=== PATIENT | female | born 1990 | race Caucasian/White ===

== ENCOUNTER → 2019-03-25 | Outpatient (CLI) | payer OTHER, SELFPAY | PROVIDERS: Family Provider Family Medicine; Visit Provider Family Medicine | DX: G47.69 Other sleep related movement disorders (principal) | CPT/HCPCS: 95810 ==

== ENCOUNTER → 2019-06-12 10:21 | Outpatient (BNVA) | payer OTHER, SELFPAY | PROVIDERS: Family Provider Family Medicine; PCP Family Medicine; Visit Provider Emergency Medicine | DX: R50.9 Fever, unspecified (principal); R05 Cough; J06.9 Acute upper respiratory infection, unspecified | CPT/HCPCS: 87804 ==

== ENCOUNTER → 2019-06-20 10:31 | Outpatient (BNVA) | payer OTHER, SELFPAY | PROVIDERS: Family Provider Family Medicine; PCP Family Medicine; Visit Provider Nurse Practitioner Women's Health | DX: Z30.432 Encounter for removal of intrauterine contraceptive device (principal) | CPT/HCPCS: 76857 ==

== ENCOUNTER → 2019-06-25 11:49 | Outpatient (BNVA) | payer OTHER, SELFPAY | PROVIDERS: Family Provider Family Medicine; PCP Family Medicine; Visit Provider Emergency Medicine | DX: R50.9 Fever, unspecified (principal) | CPT/HCPCS: 87400 ==

== ENCOUNTER → 2019-09-10 10:50 | Outpatient (BNVA) | payer OTHER, SELFPAY | PROVIDERS: Family Provider Family Medicine; PCP Family Medicine; Visit Provider Family Medicine | DX: N92.6 Irregular menstruation, unspecified (principal) | CPT/HCPCS: 81025 ==

== ENCOUNTER 2019-09-16 20:57 | Emergency (ER) | payer OTHER, SELFPAY ==
[2019-09-16 21:02] VITALS: BP 107/71; PULSE 88; RESP 18; TEMP 36.3; O2SAT 100
[2019-09-16 21:34] LABS: Basophils % 0.2 %; Eosinophils # 0.1 10^3/uL (0.0-0.8); Hematocrit 41.3 % (37.0-47.0); Hemoglobin 13.4 g/dL (11.5-15.3); Lymphocytes % 29.8 %; Mean Corpuscular HGB Conc 32.4 g/dL (30.0-36.0); Mean Corpuscular Hemoglobin 28.9 pg (28.0-34.0); Mean Platelet Volume 10.6 fL (7.4-10.4); Monocytes # 0.5 10^3/uL (0.2-0.9); Monocytes % 4.6 %; Neutrophils # 6.5 10^3/uL (1.8-7.7); Neutrophils % 64.2 %; Nucleated Red Blood Cells % 0 %; Platelet Count 255 10^3/cmm (130-400); Red Blood Count 4.64 10^6/uL (4.1-5.3); Red Cell Distribution Width 12.7 % (12.1-15.1); White Blood Count 10.2 10^3/uL (4.0-10.0)
[2019-09-16 22:09] LABS: Alanine Aminotransferase 13 U/L (0-33); Albumin Level 4.7 g/dL (3.5-5.2); Alkaline Phosphatase 55 IU/L (35-105); Anion Gap 13.4 (5-19); Aspartate Amino Transferase 17 U/L (0-32); Blood Urea Nitrogen 11 mg/dL (6-20); Calcium 9.4 mg/dL (8.5-10.5); Carbon Dioxide 24 mmol/L (22-29); Chloride 102 mmol/L (98-107); Globulin 2.5 g/dL (1.3-4.6); Glucose 119 mg/dL (65-115); Osmolality Calculated 279 mOsm/kg (285-295); Potassium 3.4 mmol/L (3.5-5.1); Sodium 136 mmol/L (136-145); Total Bilirubin 0.3 mg/dL (0.15-1.2); Total Protein 7.2 g/dL (6.6-8.7)
--- NOTE | 2019-09-17 00:01 | USR_ITS ---
PROCEDURE INFORMATION: Exam: US First Trimester, Transabdominal and US , Transvaginal Exam date and time: 09/17/2019 12:33 AM Age: 29 years old Clinical indication: complicated by abdominal or pelvic pain; Lower; First trimester; Gestational age or lmp: 6w4d; ; Additional info: Bleeding TECHNIQUE: Imaging protocol: Real-time transabdominal obstetrical ultrasound of the maternal pelvis and a first trimester , less than 14 weeks 0 days, with image documentation. Transvaginal imaging was used for better evaluation of the fetus and adnexa. COMPARISON: No relevant prior studies available. FINDINGS: There is an intrauterine gestational sac, containing a probable yolk sac. Possibly a very small small pole is present, difficult to be completely certain. Mean gestational sac diameter of 18 mm, estimates gestational age of 6-1/2 to 7 weeks. Possible [place] rump length of 3-4 mm, would estimate gestational age of 5-1/2 to 6 weeks. No heart activity is definitely identified at this time. heart activity is often seen as early as 5-1/2 weeks, and is usually identified by gestational age of six weeks. However, definitive diagnosis of non-viability cannot be made on a single exam unless the crown-rump length is greater than 7 mm with absence of heart activity. Therefore, while this overall appearance could represent a missed AB/ demise, the findings are not definitive at this time. To be safe, follow-up ultrasound in several days could help confirm or exclude viability, as clinically directed. Possible small subchorionic hematoma, measuring 16 x 6 x 13 mm. Ovaries/adnexal regions appear essentially unremarkable. Blood flow detected in each ovary. No significant free pelvic fluid. The urinary bladder was not completely evaluated/imaged at this time. Endovaginal scanning provided better visualization/evaluation of the gestational sac and contents, as discussed above. US/US OB <=14 wk fetus w transvag IMPRESSION: 1. Early intrauterine , see detailed discussion above. 2. No definite heart activity, followup recommended as clinically directed. 3. Other details discussed above.
--- NOTE | 2019-09-17 00:18 | W.ED.FEMALGU ---
HPI - Female Genitourinary General: Chief complaint: Urogenital-Female Stated complaint: 13 weeks preg/bleeding Time Seen by Provider: 09/16/19 23:53 History of Present Illness: HPI Narrative: Patient had light bleeding today then passed a blood clot about 4:00 this afternoon said he bleeding since is possible 8 to 12 weeks MD elicited complaint: vaginal bleeding Onset (ago): hour(s) Severity scale (1-10): 3 Consistency: improved Vaginal discharge: none Associated symptoms: Reports no associated symptoms; Deny abdominal pain, headache(s) or nausea Patient : Yes Possible : other (Was seen by Dr. Montana just couple days ago) Date of Last Menstrual Period: 06/16/19 Review of Systems Const: Denies: fever(s), chills or body aches Eyes: Denies: change in vision or blurry vision ENMT: Denies: throat pain or nasal congestion Card: Denies: chest pain or dyspnea on exertion Resp: Denies: dyspnea, productive cough or non-productive cough GI: Denies: abdominal pain, nausea or vomiting : Reports: vaginal bleeding Musc: Denies: extremity pain Skin/Breast: Denies: rash Neuro: Denies: headache(s) Psych: Denies: anxiety or depression Aleksandr/Lymph: Denies: easy bruising PFSH ED PFSH: Medical History Contraceptive management Depression Hypersomnia Surgical History H/O breast augmentation (~08/2018) H/O tear of meniscus of knee joint (~11/2017) Family History Grandmother Cancer brain Grandfather Cancer lung ca Sister Cancer, Onset Age: 29 uterine Psychiatric illness bipolar d/o Father Psychiatric illness bipolar d/o Mother Psychiatric illness agoraphobia Social History Smoking and tobacco status: never smoked Alcohol intake: never Female Reproductive History: Date of last menstrual period: 06/16/19 Physical Exam Const: COMMON NORMALS: no acute distress, average body habitus and patient oriented x3 HENMT: COMMON NORMALS: normocephalic HEAD & SCALP: normal to inspection and normocephalic FACE & SINUS: normal facial exam Eye: COMMON NORMALS: conjunctivae normal GENERAL EYE: appearance normal, both eyes and all related structures CONJUNCTIVA: Yes conjunctivae normal Neck/C-Spine: COMMON NORMALS: no JVD Chest: COMMONS NORMALS: normal inspection of the chest Resp: COMMON NORMALS: normal respiratory effort and clear to auscultation bilaterally AUSCULTATION: clear to auscultation bilaterally Cardio: COMMON NORMALS: no JVD, regular rate and regular rhythm RATE: regular rate RHYTHM: regular rhythm GI: COMMON NORMALS: Normal to inspection, nondistended, normoactive bowel sounds present PALPATION: Yes Tenderness to palpation present (GI) Details: LLQ and RLQ Extremity: COMMON NORMALS: normal to inspection and full ROM Neuro: COMMON NORMALS: patient oriented x3 Course Vital Signs: Vital signs: Vital Signs Temperature 97.3 F L 09/16/19 21:02 Pulse Rate 88 09/16/19 21:02 Respiratory Rate 18 09/16/19 21:02 Blood Pressure 107/71 09/16/19 21:02 Pulse Oximetry 100 09/16/19 21:02 MDM - Female Lab Data: Labs: Lab Results 09/16/19 09/16/19 09/16/19 Range/Units 21:28 21:28 21:28 WBC 10.2 H (4.0-10.0) 10^3/ uL RBC 4.64 (4.1-5.3) 10^6/u L Hgb 13.4 (11.5-15.3) g/dL Hct 41.3 (37.0-47.0) % MCV 89.0 (81-99) fL MCH 28.9 (28.0-34.0) pg MCHC 32.4 (30.0-36.0) g/dL RDW 12.7 (12.1-15.1) % Plt Count 255 (130-400) 10^3/c mm MPV 10.6 H (7.4-10.4) fL Neut % (Auto) 64.2 % Lymph % (Auto) 29.8 % [place] % (Auto) 4.6 % Eos % (Auto) 1.0 % Baso % (Auto) 0.2 % Neut # (Auto) 6.5 (1.8-7.7) 10^3/u L Lymph # (Auto) 3.0 (0.8-4.8) 10^3/u L [place] # (Auto) 0.5 (0.2-0.9) 10^3/u L Eos # (Auto) 0.1 (0.0-0.8) 10^3/u L Baso # (Auto) 0.0 (0.0-0.1) 10^3/u L Nucleated RBC % (a uto) 0 % Nucleated RBCs # 0.0 /100WBC Sodium 136 (136-145) mmol/L Potassium 3.4 L (3.5-5.1) mmol/L Chloride 102 (98-107) mmol/L Carbon Dioxide 24 (22-29) mmol/L Anion Gap 13.4 (5-19) BUN 11 (6-20) mg/dL Creatinine 0.6 (0.5-0.9) mg/dL GFR Calculation 119.0 (90-130) mL/min Glucose 119 H (65-115) mg/dL Calculated Osmolal ity 279 L (285-295) mOsm/k g Calcium 9.4 (8.5-10.5) mg/dL Total Bilirubin 0.3 (0.15-1.2) mg/dL AST 17 (0-32) U/L ALT 13 (0-33) U/L Alkaline Phosphata se 55 (35-105) IU/L Total Protein 7.2 (6.6-8.7) g/dL Albumin 4.7 (3.5-5.2) g/dL Globulin 2.5 (1.3-4.6) g/dL Ser , Jaylin i-Qnt 5081.00 mIU/mL Blood Type O Negative Rho(D) Type Negative Discharge Plan Discharge Prescriptions: No Action multivitamin Tablet 1 tab PO DAILY RF: 0 Coding Level of Care Code ED Customer Service Advocate for Chg Reyna
[2019-09-17 01:53] VITALS: BP 90/51; PULSE 71; RESP 17; O2SAT 97
[2019-09-17 02:06] LABS: Add Urine Microscopic? YES; Bilirubin Urine Neg (NEGATIVE); Blood Urine 3+ (Negative); Glucose Urine UA Norm (Normal); Ketones Urine Negative (Negative); Leukocyte Esterase Urine Negative (Negative); Nitrate Urine Negative (Negative); Protein Urine Neg (Negative); Urine Appearance Clear (CLEAR); Urine Color Yellow (Yellow); Urobilinogen Urine Norm (Negative); pH Urine 6 (5-7)
[2019-09-17 02:07] LABS: Bacteria Urine 1+; Mucus Urine 2+; RBC Urine 0-4 /hpf (0-2); WBC Urine 0-4 /hpf (0-5)
[2019-09-17 02:26] VITALS: BP 87/47; PULSE 81; RESP 17; O2SAT 97
[2019-09-17 02:30] VITALS: BP 92/70
[2019-09-17 02:35] VITALS: BP 100/60; PULSE 68; RESP 20; O2SAT 100
[2019-09-17 03:06] VITALS: RESP 18
== END 2019-09-17 03:10 ==
PROVIDERS: Emergency Provider Nurse Practitioner Family; PCP Family Medicine
DX: O46.91 Antepartum hemorrhage, unspecified, first trimester (principal); Z3A.13 13 weeks gestation of pregnancy
CPT/HCPCS: 12345; 36415; 36430; 76801; 76817; 80053; 81001; 84702; 85025; 86850; 86900; 90384; 99282; 99283; A9270

== ENCOUNTER 2019-09-18 20:37 | Outpatient (CLI) | payer OTHER, SELFPAY | END 2019-09-18 20:38 | disposition home or self-care (01) | PROVIDERS: PCP Family Medicine; Visit Provider Nurse Practitioner Women's Health | DX: O20.0 Threatened abortion (principal) | CPT/HCPCS: 36415; 84702 ==

== ENCOUNTER 2019-09-20 10:15 | Emergency (ER) | payer OTHER, SELFPAY ==
[2019-09-20 10:17] VITALS: BP 107/64; PULSE 82; RESP 18; TEMP 37.1; O2SAT 99; BMI 25.2
[2019-09-20 10:31] VITALS: PULSE 80; RESP 17; O2SAT 97
--- NOTE | 2019-09-20 10:32 | USR_ITS ---
PROCEDURE INFORMATION: Exam: US First Trimester, Transabdominal and US , Transvaginal Exam date and time: 09/20/2019 11:16 AM Age: 29 years old Clinical indication: Lmp or gestational age (in weeks): 7 wks 0 days by prior US; Other: Bleeding; ; Additional info: Miscarriage TECHNIQUE: Imaging protocol: Real-time transabdominal obstetrical ultrasound of the maternal pelvis and a first trimester , less than 14 weeks 0 days, with image documentation. Transvaginal imaging was used for better evaluation of the fetus and adnexa. COMPARISON: US OB <=14 wk fetus w transvag 09/17/2019 12:45 AM FINDINGS: The uterus measures 9.2 x 5.1 x 5.7 cm. There is a single intrauterine gestational sac which is somewhat elongated in appearance. The mean sac diameter is 1.6 cm, corresponding to an estimated gestational age of 6 weeks, 5 days. The mean crown-rump length is 0.4 cm, corresponding to an estimated gestational age of 6 weeks, 0 days. Once again, no cardiac activity is appreciated. There is a 1.2 x 1.1 cm hypoechoic area adjacent to the gestational sac, similar to prior and suggestive of a small subchorionic hematoma. Both maternal ovaries are identified and demonstrate blood flow on Doppler interrogation. The right ovary measures 3 x 1.8 x 1.8 cm and the left ovary measures 2.7 x 2.1 x 1.5 cm. There is no adnexal mass. No free fluid is seen in the pelvis. US/US OB <=14 wk fetus w transvag IMPRESSION: Persistent absence of cardiac activity and small subchorionic hematoma. The ultrasound findings are concerning for although not diagnostic of failed 1st trimester . Continued correlation with serial quantitative beta-hCG levels and close interval ultrasound followup is suggested.
[2019-09-20 10:42] LABS: Basophils % 0.1 %; Eosinophils # 0.1 10^3/uL (0.0-0.8); Eosinophils % 0.7 %; Hematocrit 37.7 % (37.0-47.0); Hemoglobin 12.3 g/dL (11.5-15.3); Lymphocytes # 1.9 10^3/uL (0.8-4.8); Lymphocytes % 19.4 %; Mean Corpuscular HGB Conc 32.6 g/dL (30.0-36.0); Mean Corpuscular Volume 88.9 fL (81-99); Mean Platelet Volume 10.9 fL (7.4-10.4); Monocytes # 0.4 10^3/uL (0.2-0.9); Monocytes % 4.5 %; Neutrophils # 7.3 10^3/uL (1.8-7.7); Nucleated Red Blood Cells % 0 %; Platelet Count 243 10^3/cmm (130-400); Red Blood Count 4.24 10^6/uL (4.1-5.3); Red Cell Distribution Width 12.7 % (12.1-15.1); White Blood Count 9.7 10^3/uL (4.0-10.0)
[2019-09-20 10:47] VITALS: RESP 18
[2019-09-20] MEDS: ondansetron 2 mg/ML SDV 2 mL 4 MG IVP (10:47)
[2019-09-20] MEDS: morphine 4 mg/mL SDV 1 mL IVP (10:47)
[2019-09-20 10:50] LABS: INR 0.94 (0.8-1.2)
--- NOTE | 2019-09-20 10:55 | ED_ITS ---
HPI - General: Chief complaint: Vaginal Bleeding Stated complaint: BLEEDING/PAIN POST MISCARRIAGE Time Seen by Provider: 09/20/19 10:25 History of Present Illness: HPI Narrative: Patient arrives here with continued bleeding from her miscarriage said just felt weak and she did lose quite a minimal blood based on lab work that was done by the clinic. Is having cramping low back pain MD Complaint: vaginal bleeding Onset (ago): day(s) Pain Consistency: constant Location: abdomen Severity: moderate Severity scale (1-10): 6 Quality: Cramping and Aching Vaginal bleeding: heavy and other (Did have multiple clots yesterday) Date of Last Menstrual Period: 06/16/19 OB History - Current : other (Miscarriage) Associated symptoms: Deny abdominal pain, headache(s), nausea or vomiting Review of Systems Const: Denies: fever(s), chills or body aches Eyes: Denies: change in vision or blurry vision ENMT: Denies: throat pain or nasal congestion Card: Denies: chest pain or dyspnea on exertion Resp: Denies: dyspnea, productive cough or non-productive cough GI: Denies: abdominal pain, nausea or vomiting : Reports: vaginal bleeding and other (Back pain) Musc: Denies: extremity pain Skin/Breast: Denies: rash Neuro: Denies: headache(s) Psych: Denies: anxiety or depression Aleksandr/Lymph: Denies: easy bruising PFSH ED PFSH: Medical History (Updated 09/20/19 @ 12:48 by LUIS Scruggs) Contraceptive management Depression Hypersomnia Surgical History H/O breast augmentation (~08/2018) H/O tear of meniscus of knee joint (~11/2017) Family History Grandmother Cancer brain Grandfather Cancer lung ca Sister Cancer, Onset Age: 29 uterine Psychiatric illness bipolar d/o Father Psychiatric illness bipolar d/o Mother Psychiatric illness agoraphobia Social History Smoking and tobacco status: never smoked Alcohol intake: never Additional social history: - Tabacco use: Denies Alcohol use: Denies Drug use: Denies Female Reproductive History: Date of last menstrual period: 06/16/19 Physical Exam Const: COMMON NORMALS: no acute distress, average body habitus and patient oriented x3 HENMT: COMMON NORMALS: normocephalic HEAD & SCALP: normal to inspection and normocephalic FACE & SINUS: normal facial exam Eye: COMMON NORMALS: conjunctivae normal GENERAL EYE: appearance normal, both eyes and all related structures CONJUNCTIVA: Yes conjunctivae normal Neck/C-Spine: COMMON NORMALS: no JVD Chest: COMMONS NORMALS: normal inspection of the chest Resp: COMMON NORMALS: normal respiratory effort and clear to auscultation bilaterally AUSCULTATION: clear to auscultation bilaterally Cardio: COMMON NORMALS: no JVD, regular rate and regular rhythm RATE: regular rate RHYTHM: regular rhythm GI: COMMON NORMALS: Normal to inspection, nondistended, normoactive bowel sounds present Extremity: COMMON NORMALS: normal to inspection and full ROM Neuro: COMMON NORMALS: patient oriented x3 Course Vital Signs: Vital signs: Vital Signs Temperature 98.7 F 09/20/19 10:17 Pulse Rate 68 09/20/19 12:09 Respiratory Rate 16 09/20/19 12:09 Blood Pressure 90/54 09/20/19 12:09 Pulse Oximetry 95 09/20/19 12:09 MDM - OB/Uterine Contractions MDM Narrative: Medical decision making narrative: Discussed case with Dr. Pretty and Dr. Croft implementing discharge instructions per Dr. Croft patient will follow up on Sunday morning at his clinic Lab Data: Labs: Lab Results 09/20/19 09/20/19 09/20/19 Range/Units 10:28 10:28 10:28 WBC 9.7 (4.0-10.0) 10^3/ uL RBC 4.24 (4.1-5.3) 10^6/u L Hgb 12.3 (11.5-15.3) g/dL Hct 37.7 (37.0-47.0) % MCV 88.9 (81-99) fL MCH 29.0 (28.0-34.0) pg MCHC 32.6 (30.0-36.0) g/dL RDW 12.7 (12.1-15.1) % Plt Count 243 (130-400) 10^3/c mm MPV 10.9 H (7.4-10.4) fL Neut % (Auto) 75.0 % Lymph % (Auto) 19.4 % [place] % (Auto) 4.5 % Eos % (Auto) 0.7 % Baso % (Auto) 0.1 % Neut # (Auto) 7.3 (1.8-7.7) 10^3/u L Lymph # (Auto) 1.9 (0.8-4.8) 10^3/u L [place] # (Auto) 0.4 (0.2-0.9) 10^3/u L Eos # (Auto) 0.1 (0.0-0.8) 10^3/u L Baso # (Auto) 0.0 (0.0-0.1) 10^3/u L Nucleated RBC % (a uto) 0 % Nucleated RBCs # 0.0 /100WBC PT 12.80 (10.5-13.3) SECO NDS INR 0.94 (0.8-1.2) Ser , Jaylin i-Qnt 1896.00 mIU/mL Discharge Plan Discharge Patient Disposition: Home, Self-Care Clinical Impression: Threatened Condition: Stable Prescriptions: New Cytotec 200 mcg tablet 600 mcg PO BID Qty: 6 RF: 0 hydrocodone-acetaminophen 5-325 mg tablet 1 tab PO Q4H PRN (Reason: pain) Qty: 7 RF: 0 Zofran 4 mg tablet 4 mg PO Q6H PRN (Reason: nausea and vomiting) Qty: 7 RF: 0 No Action Gummies 400 mcg-35 mg- 25 mg-5 mg tablet,chewable 1 tab PO DAILY RF: 0 Discharge Orders: Discharge Order (Routine); Ordered 09/20/19 Ordered By: Clifford Kumar Referrals: Alaina Montana MD [Primary Care Provider] - Discharge Diet: Advance as tolerated Discharge Activity: Increase activity as tolerated Patient Instructions: Threatened Miscarriage (ED) Activity Restrictions/Additional Instructions: Follow-up with medical provider as directed. Take medications as prescribed. Return to the ER or your medical provider if condition worsens. Please read and understand discharge instructions. If any questions ask please. Monitor pulse rate blood pressure. If gone through more than 3-4 maxipads an hour heavily soaked in 3 to 4 hours. Follow back up with your the ER. Follow-up Dr. Croft's office on Sunday morning or call Coding Level of Care Code ED Neurology Director for Brice Fwd Exam Comprehensive
[2019-09-20 11:24] VITALS: BP 97/56; RESP 16; O2SAT 94
[2019-09-20 12:09] VITALS: BP 90/54; PULSE 68; RESP 16; O2SAT 95
[2019-09-20 13:16] VITALS: BP 87/60; PULSE 84; RESP 16; O2SAT 97
== END 2019-09-20 13:16 | disposition home or self-care (01) ==
PROVIDERS: Emergency Provider Nurse Practitioner Family; PCP Family Medicine
DX: O20.0 Threatened abortion (principal); Z3A.00 Weeks of gestation of pregnancy not specified
CPT/HCPCS: 12345; 76801; 76817; 84702; 85025; 85610; 96374; 96375; 99283; J2270; J2405

== ENCOUNTER → 2019-09-30 08:46 | Outpatient (BNVA) | payer OTHER, SELFPAY | PROVIDERS: PCP Family Medicine; Visit Provider Nurse Practitioner Women's Health | DX: O03.4 Incomplete spontaneous abortion without complication (principal) | CPT/HCPCS: 84702 ==

== ENCOUNTER → 2019-10-14 17:46 | Outpatient (BNVA) | payer OTHER, SELFPAY | PROVIDERS: PCP Family Medicine; Visit Provider Nurse Practitioner Women's Health | DX: O03.4 Incomplete spontaneous abortion without complication (principal) | CPT/HCPCS: 84702 ==

== ENCOUNTER → 2021-04-06 10:20 | Outpatient (BNVA) | payer OTHER, SELFPAY | PROVIDERS: PCP Family Medicine; Visit Provider Emergency Medicine | DX: N92.6 Irregular menstruation, unspecified (principal) | CPT/HCPCS: 81025 ==

== ENCOUNTER → 2021-07-13 15:02 | Outpatient (BNVA) | payer OTHER, SELFPAY | PROVIDERS: Visit Provider Nurse Practitioner Women's Health | DX: N92.6 Irregular menstruation, unspecified (principal) | CPT/HCPCS: 84146; 84439; 84443; 84702; 85025 ==

== ENCOUNTER → 2021-08-15 14:54 | Outpatient (BNVA) | payer OTHER, SELFPAY | PROVIDERS: Visit Provider Nurse Practitioner Women's Health | DX: N92.6 Irregular menstruation, unspecified (principal) | CPT/HCPCS: 76830 ==

== ENCOUNTER → 2021-09-28 09:13 | Outpatient (BNVA) | payer OTHER, SELFPAY | PROVIDERS: Referring Provider Family Medicine; Visit Provider Nurse Practitioner Family | DX: M67.442 Ganglion, left hand (principal) | CPT/HCPCS: 73130 ==

== ENCOUNTER → 2021-10-21 08:42 | Outpatient (BNVA) | payer OTHER, SELFPAY | PROVIDERS: Visit Provider Obstetrics & Gynecology | DX: N92.1 Excessive and frequent menstruation with irregular cycle (principal); Z01.812 Encounter for preprocedural laboratory examination | CPT/HCPCS: 80053; 81000; 81025; 85025; 86850; 86900 ==

== ENCOUNTER 2021-10-27 14:02 | Observation (INO) | payer OTHER, SELFPAY ==
[2021-10-21 10:21] VITALS: BMI 26.2
--- NOTE | 2021-10-21 15:22 | P.ANESASSM_ITS ---
Pre-Anesthetic Assessment Height/Weight: Height 1.57 m Weight 64.864 kg Preop Diagnosis: AUB, menorrhagia Operation Date: 10/26/21 08:05 Proposed Procedures p Total Vaginal Hysterectomy 44431,N92.1(Not Applicable) - Ollie Chu MD Familial anesthetic complications: PONV Was Beta Miles taken within 24 hours: N/A Was Clonidine taken within 24 hours: N/A Social No alcohol and No tobacco Exam alert, oriented x 3, clear to auscultation bilaterally and regular rate & rhythm Airway Submandibular: within normal limits Cervical ROM: within normal limits Mallampati: Class I Dentition: full History/ROS No significant complaints Pulmonary None reported CV/HEM None reported None reported Hepatic None reported GI None reported Metabolic None reported Musc/skel None reported Neuropsych None reported Anesthetic Plan ASA status: 2 Anesthesia: Anesthesia Evaluation and General Other: We discussed risk and benefits of general anesthesia including PONV, sore throat (sometimes severe), corneal abrasion, positioning and peripheral nerve injuries, life threatening allergic reaction, post operative ICU admission requiring prolonged intubation, stroke, heart attack, , and rare incidences of recall. Patient consents to proceed with general anesthesia. Risk of > 500 ml blood loss (7ml/kg in children): No Medications/Allergies Home Medications Medication Instructions Recorded Confirmed Last Taken Type PNV 153-FA 400 mcg-om3 35 mg-dha tab PO 07/13/21 10/21/21 Unknown History 25 mg-epa 5 mg-fish oil chew tablet ( Gummies) copper 380 square mm intrauterine INTRAUTERINE 07/13/21 10/21/21 Unknown History device (ParaGard T 380A) meloxicam 15 mg tablet (Mobic) 15 mg PO DAILY #90 tab 08/29/21 10/21/21 Unknown Rx cetirizine 10 mg capsule (Zyrtec) 10 mg PO DAILY PRN 10/21/21 10/21/21 Unknown History diphenhydramine HCl 25 mg capsule 25 mg PO TID PRN 10/21/21 10/21/21 Unknown History (Benadryl) Allergies Allergy/AdvReac Type Severity Reaction Status Date / Time adhesive tape Allergy rash Verified 10/21/21 10:18 [facility] Anesthesia Medical History Depression Hypersomnia No pertinent past medical history neghx: htn,dm,thyroid,dvt/pe PCP: None Surgical History H/O breast augmentation (~08/2018) H/O tear of meniscus of knee joint (~11/2017) Family History Sister Hypertension Ovarian cancer dx age 28 Mother Hypertension Denies family history of Colon cancer Diabetes Heart disease Hypercholesteremia Breast cancer Uterine cancer Thyroid disease Stroke Social History Smoking and tobacco status: never smoked Female Reproductive History Date of last menstrual period: 10/07/21 Data Anesthesia Cardiac Studies: No Data to Display
[2021-10-27] VITALS (12 sets, daily range): BP systolic 81–112; BP diastolic 52–81; PULSE 68–101; RESP 15–18; TEMP 36.1–36.7; O2SAT 95–100; BMI 26.2
[2021-10-27 09:39] LABS: OR HCG Qualitative Urine Negative (Negative)
[2021-10-27] MEDS: sodium chloride 0.9% 500 ML IV (09:51)
--- NOTE | 2021-10-27 10:03 | P.ANESUD_ITS ---
Pre-Anesthetic Update Pre-Anesthetic Assessment: Date of Surgery/Procedure: 10/27/21 Preop Sherin gnosis: Menorrhagia Proposed Procedure: Operation Date: 10/27/21 10:40 Proposed Procedures p Total Vaginal Hysterectomy 66731,N92.1(Not Applicable) - Ollie Chu MD Any changes to Pre-Anesthetic Assessment?: No Last Intake: Intake Last Liquid Date 10/26/21 Last Liquid Time 22:00 Last Solid Date 10/26/21 Last Solid Time 22:00 Vitals: Temperature 98.1 F 10/27/21 09:43 Temperature Source Temporal Artery S can 10/27/21 09:43 Pulse Rate 83 10/27/21 09:43 Respiratory Rate 18 10/27/21 09:43 Blood Pressure 112/81 10/27/21 09:43 Blood Pressure Jessica n 91 10/27/21 09:43 Pulse Oximetry 99 10/27/21 09:43 Oxygen Delivery Me thod 10/27/21 09:43 Exam: Pre-Anes Outpt Exam: alert, oriented x 3, clear to auscultation bilaterally and regular rate & rhythm Cardiac Studies: No Data to Display
[2021-10-27] MEDS: diphenhydrAMINE 50 mg/mL SDV 1mL 12.5 MG IVP (10:20)
[2021-10-27] MEDS: sodium chloride 0.9% 1,000 ML 30 ML IV (10:20)
[2021-10-27] MEDS: HYDROmorphone 1 mg/mL INJ 1 mL 0.5 MG IVP (10:21)
--- NOTE | 2021-10-27 11:57 | W.PM.OPSUD ---
Surgery/Procedure H&P Update DATE OF PROCEDURE: October 27, 2021 DATE H&P PERFORMED: 10/21/21 H&P UPDATE INFORMATION: I have reviewed H&P completed within last 30 days, I have examined patient prior to procedure and No changes to prior documentation PREOP DIAGNOSIS: Menorrhagia PLANNED PROCEDURE: Operation Date: 10/27/21 10:40 Proposed Procedures p Total Vaginal Hysterectomy 52670,N92.1(Not Applicable) - Ollie Chu MD
[2021-10-27] MEDS: ceFOXitin 2,000 MG in sodium chloride 0.9% (plus) 50 ML 100 MG IV (12:13)
--- NOTE | 2021-10-27 13:42 | P.OP_ITS ---
Operative Report Date of procedure: October 27, 2021 Pre-op diagnosis: Preop Diagnosis Menorrhagia Post-op diagnosis: Same as above Post-op findings: Normal uterus Procedure done: Total vaginal hysterectomy Specimens removed/disposition: Uterus Pathology: Uterus Surgeon: Ollie Chu MD Estimated blood loss (mL): 200 IV fluids (mL): 1,300 Findings: Normal size uterus Procedure: After informed consent and risks, benefits, indications and alternatives reviewed with the patient was taken to the operating room. The patient was pl aced in dorsal lithotomy position prepped, and draped in the usual sterile fashion. The pre-procedure timeout verifying the correct patient, procedure, site and side, could not requirements was performed and acknowledge by the OR team. A Menjivar catheter was placed. A Bookwalter vaginal retractor was placed into the vagina in usual manner visualize the cervix. Cervix was grasped with a single tooth tenaculum and circumferentially infiltrated with 2% lidocaine with epinephrine. Then cervix was circumferentially incised with bovie and the bladder was dissected off the pubovesical cervical fascia anteriorly with a sponge stick and Metzenbaum scissors. The anterior peritoneal reflection was identified and the anterior cul-de-sac was entered sharply with Metzenbaum scissors. The same procedure was performed posteriorly and a posterior colpotomy was made through the posterior cul-de-sac space without difficulty and the posterior blade of the Bookwalter vaginal retractor was advanced posteriorly into the cul-de-sac. At this time, the left and right uterosacral ligaments were isolated and ligated with 0 Vicryl. The Voyant device was placed over the uterosacral ligaments on either side and was then used in a serial fashion up through the cardinal ligaments bilaterally cross-clamped, cut, and sealed with the Voyant device. Finally, the uterine arteries were cross-clamped, cut, sealed and ligated with the Voyant device. Hemostasis was assured. The broad ligaments were then serially clamped, sealed and cut with the Voyant device on both sides. Excellent hemostasis was visualized. Both cornua were clamped, sealed and cut with the Voyant device. Then the pedicles were then suture ligated with excellent hemostasis. The uterus was excised and submitted for pathologic evaluation. No other abnormalities were noted in the pelvic cavity. The peritoneum was then closed in a pursestring fashion with 0 Vicryl suture. The vaginal cuff angles were closed with [id number] #0 Vicryl suture on both sides and transfixed with the ipsilateral cardinal and uterosacral ligaments. The remainder of the vaginal cuff was closed with #0 Vicryl in a running locked fashion. At this time, instruments were removed from the vagina at hemostasis assured. Menjivar catheter was noted yielding clear solange urine. Then the patient was taken out of dorsal lithotomy position and awakened from the general anesthesia. The patient tolerated the procedure well and was taken to the PACU recovery room in a stable condition. Sponge, lap, needle and instruments counts were correct x3.
[2021-10-27] MEDS: fentaNYL 50 mcg/mL INJ 2mL IVP (14:08)
[2021-10-27] MEDS: dextrose 5%-lactated ringers 1,000 ML 125 ML IV (15:12)
[2021-10-27] MEDS: ketorolac 30 mg/mL INJ IVP ×2 (15:12→21:52)
--- NOTE | 2021-10-27 16:23 | ANE.PACU2 ---
Inpatient post-anesthesia follow up: Airway intact: Yes Vital signs: Temperature 98.0 F Pulse Rate 98 Respiratory Rate 15 Blood Pressure 103/69 Pulse Oximetry 97 Oxygen Delivery Me thod Room Air Oxygen Flow Rate 8 Fraction of Inspir ed Oxygen Hydration adequate: Yes Nausea and vomiting: No Pain level: 2 Mental status: Baseline
[2021-10-27] MEDS: HYDROcodone-acetaminophen 5-325 mg Tablet PO (19:28)
[2021-10-27] MEDS: ondansetron 2 mg/ML SDV 2 mL 4 MG IVP (19:32)
[2021-10-27] MEDS: diphenhydrAMINE 25 mg Capsule PO (22:16)
[2021-10-28] MEDS: HYDROcodone-acetaminophen 5-325 mg Tablet PO ×2 (01:11→09:03)
[2021-10-28] MEDS: ondansetron 2 mg/ML SDV 2 mL 4 MG IVP (01:14)
[2021-10-28] MEDS: dextrose 5%-lactated ringers 1,000 ML 125 ML IV (01:17)
[2021-10-28] MEDS: ketorolac 30 mg/mL INJ IVP (03:15)
[2021-10-28 03:20] VITALS: BP 93/57; PULSE 65; RESP 16; TEMP 36.6; O2SAT 95
[2021-10-28 05:27] LABS: Hematocrit 35.2 % (37.0-47.0); Hemoglobin 11.8 g/dL (11.5-15.3); Mean Corpuscular HGB Conc 33.5 g/dL (30.0-36.0); Mean Corpuscular Hemoglobin 28.9 pg (28.0-34.0); Mean Corpuscular Volume 86.1 fl (81-99); Mean Platelet Volume 11.4 fL (7.4-10.4); Platelet Count 208 10^3/cmm (130-400); Red Blood Count 4.09 10^6/uL (4.1-5.3); Red Cell Distribution Width 13.8 % (12.1-15.1); White Blood Count 14.8 10^3/uL (4.0-10.0)
--- NOTE | 2021-10-28 07:34 | PM.OBGYDC ---
Discharge Providers TANNING SALON ATTENDANT Date of Admission: 10/27/21 14:02 Date of Discharge: 10/28/21 Attending Provider at Admission: Ollie Chu MD Attending Provider at Discharge: Ollie Chu MD Primary TANNING SALON ATTENDANT: Ollie Chu MD Reason for Visit Reason for Visit: N92.1 Excessive and frquent menstruation with irre Brief History: Mrs. Prescott 31-year-old female with abnormal uterine bleeding with irregular cycles unresponsive to medical management. Hospital Course Hospital Course Mrs. James 31-year-old female admitted for planned total vaginal hysterectomy. The total vaginal hysterectomy was performed without complication. Overnight observation was uneventful. She is afebrile and hemodynamically stable postoperative day 1. Tolerating diet well. Ambulating without difficulty. Counseled regarding pelvic rest for 6 weeks (no sex, no tampons, no vaginal douches). Return to the emergency room if any fever, increased bleeding or pain. Physical Exam Narrative: GA: Alert and oriented ?3. HEENT: WNL. Heart: Regular rate and rhythm. Lungs: Clear to auscultation bilaterally. Abdomen: Bowel sounds present, nontender. 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 Extremities: No edema, no cyanosis, no calves pain. Urinary Catheter Management: Menjivar: Cath Placed During This Visit: yes, but has since been removed by the nurse Reason for Continuing Indwelling Catheter: Decision to DC Catheter Urinary Catheter Date of Insertion: 10/27/21 Urinary Catheter Time of Insertion: 12:53 Date Urinary Catheter Removed: 10/28/21 Time Urinary Catheter Discontinued: 05:15 History History History 4 Term 3 Miscarriages/Ectopic 1 0 Living Children 3 Discharge Data Studies Completed and Pending Pending at discharge Category Date Time Status Pathology: Surgical [PTH] Routine Pth 10/27/21 13:45 Received Laboratory Results WBC 14.8 10^3/uL (4.0-10.0) H 10/28/21 05:10 RBC 4.09 10^6/uL (4.1-5.3) L 10/28/21 05:10 Hgb 11.8 g/dL (11.5-15.3) 10/28/21 05:10 Hct 35.2 % (37.0-47.0) L 10/28/21 05:10 MCV 86.1 fl (81-99) 10/28/21 05:10 MCH 28.9 pg (28.0-34.0) 10/28/21 05:10 MCHC 33.5 g/dL (30.0-36.0) 10/28/21 05:10 RDW 13.8 % (12.1-15.1) 10/28/21 05:10 Plt Count 208 10^3/cmm (130-400) 10/28/21 05:10 MPV 11.4 fL (7.4-10.4) H 10/28/21 05:10 Urine HCG, Qual Negative (Negative) 10/27/21 09:38 Blood Type O Negative 10/27/21 09:35 Rho(D) Type Negative 10/27/21 09:35 Antibody Screen Negative 10/27/21 09:35 Vitals Last Vital Signs Temp 97.8 F 10/28/21 03:20 Pulse 65 10/28/21 03:20 Resp 16 10/28/21 03:20 BP 93/57 10/28/21 03:20 Pulse Ox 95 10/28/21 03:20 Discharge Plan Discharge Patient Disposition: Home Condition: Stable Prescriptions: New ibuprofen 800 mg tablet 800 mg PO TID PRN (Reason: pain) Qty: 60 0RF hydrocodone-acetaminophen 5-325 mg tablet 1 tab PO Q4H PRN (Reason: pain) Qty: 20 0RF acetaminophen 325 mg capsule 325 mg PO Q4H PRN (Reason: fever or pain) Qty: 60 0RF ondansetron 4 mg tablet,disintegrating 4 mg PO DAILY 5 Days Qty: 10 0RF Continued Gummies 400 mcg-35 mg- 25 mg-5 mg tablet,chewable 400 tab PO DAILY 0RF ParaGard T 380A 380 square mm intrauterine device 380 device intrauterine DAILY 0RF meloxicam [Mobic] 15 mg tablet 15 mg PO DAILY Qty: 90 0RF Zyrtec 10 mg capsule 10 mg PO DAILY PRN (Reason: Allergy Symptoms) 0RF diphenhydramine HCl [Benadryl] 25 mg capsule 25 mg PO TID PRN (Reason: Allergy Symptoms) 0RF Discharge Orders: Discharge Order (Routine); Ordered 10/28/21 Ordered By: Ollie Chu Discharge Diet: Usual diet Discharge Activity: Limit activity as instructed Patient Instructions: Opioid Safety, Vaginal Hysterectomy (GEN), Hysterectomy (GEN) Activity Restrictions/Additional Instructions: 1. Please call [facility] on next working day to make your post-operative appointment in 2 weeks. 2. Please stay home until you come back to the clinic on first post-operative check up. 3. Please follow instructions on your medications CAREFULLY. 4. If you have abdominal incision, do not cover it unless dressing is necessary because of drainage. OK to shower, but avoid bath. Leave steri-strips until they fall off. If they are still on one week after surgery, you may remove them. 5. If you had vaginal surgery or vaginal repair, Dr. Chu may instruct you to take SITZ bath. 6. Yellow, blood tinged odorous vaginal discharge is usually normal after hysterectomy or vaginal surgeries. 7. No sexual intercourse, tampons, or douches until you are completely released from the post-operative care. 8. Avoid constipation by eating right and maybe using some Metamucil or Milk of Magnesia. 9. All prescription refills are given during the working hours. Please do no wait till it runs out. Call the clinic at [phone] before your medication runs out. The clinic will get in touch with your doctor to prescribe medications if necessary. 10. Please remain within 40 mile radius from our hospital because emergencies do happen now and then during the post-operative period. 11. If you have stairs at home, take one step at a time slowly and minimize the number of trips. It helps to stay in one floor for the next few days. No lifting except what you can lift by one hand until you are released from the post-operative care. 12. Driving is discouraged until you are well healed. It may be 3-4 weeks before you feel strong enough to drive. You should be able to turn and look through the rear window without pain and you should be able to push the brake pedal very hard without pain before you drive. No fast rules, but SAFETY should be your primary concern. DO NOT drive if you are on sedating medications such as narcotics. 13. Call the clinic (during working hours) to make urgent appointment or go to the Emergency room, if any of the following occurs: i. Vaginal bleeding becomes heavy, more than a period. ii. Incision becomes red and sore, or drains pus. iii. Your temperature is over 100.4 or you have chill. iv. IV site becomes red and swollen (a little ``knot?? is usually OK) v. Persistent nausea and vomiting vi. Persistent constipation or diarrhea vii. Rash or allergic reaction to medications. Discharge Attestations TANNING SALON ATTENDANT Time Spent in Discharge Care*: greater than 30 min Coding Level of Care Code Acute Tension Machine Operator for Brice Orellana
[2021-10-28 09:00] VITALS: BP 110/70; PULSE 62; RESP 16; TEMP 36.7
[2021-10-28] MEDS: docusate sodium 100 mg Capsule PO (09:04)
[2021-10-28 09:05] VITALS: BP 110/70; PULSE 62; RESP 16; TEMP 36.7
== END 2021-10-28 09:05 | disposition home or self-care (01) ==
LOC: OBGYN 14:03
PROVIDERS: Anesthesiology; Admitting Provider Obstetrics & Gynecology; Visit Provider Obstetrics & Gynecology
PROC: (CPT 58262; principal; 2021-10-27 10:40)
DX: N92.0 Excessive and frequent menstruation with regular cycle (principal); N72 Inflammatory disease of cervix uteri
CPT/HCPCS: 58262; 36415; 81025; 84703; 85027; 86850; 86900; 88307; G0378; J0694; J1100; J1170; J1200; J1885; J2250; J2405; J2704; J2710; J3010; J3490; J7030; J7040; Q9968